=== PATIENT | female | born 1950 | race Caucasian/White ===

== ENCOUNTER 2017-05-04 15:18 | Emergency (ER) | payer OTHER, MEDICARE ==
[~2017-05-04] VITALS: Ht 167.6 cm; Wt 77.1 kg
--- NOTE | 2017-05-04 15:47 | ED AMS/SEIZURE/WEAK/DIZZY ---
History of Present Illness General Chief Complaint: Headache Stated Complaint: DIZZINESS Source: patient, friend Exam Limitations: no limitations Vital Signs & Intake/Output Vital Signs & Intake/Output Vital Signs Date Time Temp Pulse Resp B/P B/P Pulse O2 O2 Flow FiO2 Mean Ox Delivery Rate 05/04 1955 98.4 80 18 163/85 100 Room Air 05/04 1754 98.5 98 19 166/102 99 Room Air 05/04 1526 97.7 97 19 140/77 99 Room Air 05/04 1524 Room Air ED Intake and Output 05/05 0000 05/04 1200 Intake Total 0 Output Total Balance 0 Intake, Oral 0 Patient 170 lb Weight Allergies Coded Allergies: MDX - Amoxicillin (AMOXICILLIN) (08/28/10) MDX - Bee Venom (BEE VENOM) (08/28/10) MDX - Epinephrine (Epinephrine) (MAKES HER VERY SHAKEY 08/28/10) Triage Note: PT BIBA FROM [facility] AFTER HAVING SUDDENT ONSET OF HEADACHE, DIZZINESS, NAUSEA AND COLD SWEATS. PT FEBRILE BY EMS, 100.6F. GLUCOSE 160. PT DENIES CHEST PAIN OR SOB. Triage Nurses Notes Reviewed? yes Onset: Gradual Duration: minute(s): Timing: single episode today Injury Environment: [facility] Severity: moderate HPI: 67yo female presents to ED complaining of headache, dizziness, presyncope, cold sweats beginning prior to arrival. Patient states that she was at the [facility] and she got up to walk down the hallway when she began experiencing the symptoms. She states dizziness was so severe she had to sit down and felt nauseous. Patient states that currently while laying in stretcher she feels better however if she sits up her symptoms return. Patient states past few days she has been feeling generalized weakness. Otherwise she feels well, she denies fevers, chills, abdominal pain, chest pain, nausea, vomiting, diarrhea, urinary symptoms. Past History Travel History Traveled to [place] past 21 day No Medical History Any Pertinent Medical History? see below for history Neurological: FIBROMYALGIA EENT: NONE Cardiovascular: NONE Respiratory: NONE Gastrointestinal: NONE Hepatic: NONE Renal: NONE Musculoskeletal: NONE Psychiatric: NONE Endocrine: NONE Blood Disorders: NONE Cancer(s): NONE Surgical History Surgical History: non-contributory Psychosocial History What is your primary language [place] Tobacco Use: Never used ETOH Use: denies use Family History Hx Contributory? No Review of Systems Review of Systems Constitutional: Reports: see HPI. EENTM: Reports: no symptoms. Respiratory: Reports: no symptoms. Cardiovascular: Reports: see HPI. GI: Reports: see HPI. Genitourinary: Reports: no symptoms. Musculoskeletal: Reports: no symptoms. Skin: Reports: no symptoms. Neurological/Psychological: Reports: see HPI. Hematologic/Endocrine: Reports: no symptoms. Immunologic/Allergic: Reports: no symptoms. All Other Systems: Reviewed and Negative Physical Exam Physical Exam General Appearance: well developed/nourished, no apparent distress, alert, awake Head: atraumatic, normal appearance Eyes: Bilateral: normal appearance, PERRL, EOMI. Ears, Nose, Throat: normal pharynx, normal ENT inspection, hearing grossly normal Neck: normal inspection, supple, full range of motion Respiratory: normal breath sounds, no respiratory distress, lungs clear Cardiovascular: regular rate/rhythm Peripheral Pulses: 2+ radial (R), 2+ radial (L) Gastrointestinal: normal bowel sounds, soft, non-tender, no organomegaly Back: normal inspection, normal range of motion Extremities: normal range of motion Neurologic/Psych: awake, alert, oriented x 3, managing supervisor II-XII nml as tested Skin: intact, normal color, warm/dry Core Measures ACS in differential dx? Yes CVA/TIA Diagnosis No Sepsis Present: No Sepsis Focused Exam Completed? No Progress Differential Diagnosis: arrythmia, alcohol intoxication, anemia, benign positional vertigo, CVA/stroke, dehydration, drug intoxication, electrolyte imbalance, hypoglycemia, intracranial Hem., intracranial mass/tumor, labrynthitis, Meniere's disease, pneumonia, postural hypotension, presyncope, subarachnoid Hem. Plan of Care: Orders Procedure Date/time Status MISTAKE 05/04 1619 Active TROPONIN LEVEL 05/04 1619 Complete COMPREHENSIVE METABOLIC PANEL 05/04 1619 Complete CBC WITHOUT DIFFERENTIAL 05/04 161 Complete EKG 05/04 161 Active RAPID VIRAL INFLUENZA A 05/04 1546 Complete Laboratory Tests 05/04/17 1657: Anion Gap 14, Estimated GFR > 60, BUN/Creatinine Ratio 24.3, Glucose 98, Calcium 9.7, Total Bilirubin 0.2, AST 19, ALT 32, Alkaline Phosphatase 92, Troponin I < 0.01, Total Protein 7.0, Albumin 4.2, Globulin 2.8, Albumin/Globulin Ratio 1.5, CBC w Diff NO MAN DIFF REQ, RBC 4.82, MCV 86.6, MCH 28.8, MCHC 33.3, RDW 12.9, MPV 8.4, Gran % 71.0, Lymphocytes % 21.6, Monocytes % 5.5, Eosinophils % 1.4, Basophils % 0.5, Absolute Granulocytes 6.8 H, Absolute Lymphocytes 2.1, Absolute Monocytes 0.5, Absolute Eosinophils 0.1, Absolute Basophils 0 Microbiology 05/04 1603 NASOPHARYN: Influenza Virus A & B Rapid Smear - COMP Rapid flu swab is negative. Patient's EKG is in sinus rhythm, troponin negative. Remainder of labs are within normal limits. Patient's orthostatic vital signs show orthostatic changes, patient medicated with IV fluids. During standing the patient became symptomatic with headache and dizziness. Patient has been afebrile here in the emergency department. Following liter of fluids repeat orthostatic vital signs are negative, patient ambulated by me here in the emergency department and had steady gait without symptoms. Patient feels ready to go home at this time. Patient educated on increasing fluids and resting. She will follow up with her primary care doctor. The patient is in no acute distress, symptoms have resolved, she is nontoxic appearing. The patient agrees with the plan of care. She was given strict return precautions. The patient was discussed with Dr. Vaughan who agrees with this plan. Initial ED EKG: sinus rhythm @82bpm, nonspecific ST changes Prior EKG: changed (08/28/10 subtle t wave changes) Departure Departure Disposition: HOME OR SELF CARE Condition: Stable Clinical Impression Primary Impression: Orthostatic hypotension Secondary Impressions: Dizziness Headache Qualifiers: Headache type: unspecified Headache chronicity pattern: acute headache Intractability: not intractable Qualified Code: R51 - Headache Pre-syncope Referrals: Sarah DOVER,Yessi Hamilton (PCP/Family) Additional Instructions: Continue to drink plenty of fluids. Follow-up with her primary care doctor this week and inform them of your visit to the emergency department. If you experience worsening symptoms such as feeling is that you're going to pass out, fainting, chest pain, trouble breathing, worsening dizziness patient return to the emergency department. Please note that there might be incidental findings in your evaluation that are unrelated to the current emergency department visit. Please notify your primary care doctor about this emergency department visit in order to obtain and review all of the testing performed so that these incidental findings can be monitored as needed. If you had an x-ray performed, please understand that some fractures may not be seen on the initial set of x-rays. If your symptoms persist you might need a repeat set of x-rays to check for such a fracture. If you had a laceration evaluated, please understand that foreign bodies such as glass or wood may not be visible to the naked eye or on plain x-rays. If the wound becomes red, swollen, increasingly more painful or if there is any drainage from the wound, please have it reevaluated by a physician for the possibility of a retained foreign body. If you're unable to follow up as outlined in the discharge instructions please return to the emergency department. Thank you for choosing the [facility] Emergency Department for your care. It was a pleasure to serve you today. Departure Forms: Customer Survey General Discharge Information
[2017-05-04 17:08] LABS: ABSOLUTE BASOPHIL COUNT 0 /CUMM (0.0-0.2); ABSOLUTE EOSINOPHIL COUNT 0.1 /CUMM (0.0-0.7); ABSOLUTE GRANULOCYTE CT 6.8 /CUMM (1.4-6.5); ABSOLUTE LYMPH COUNT 2.1 /CUMM (1.2-3.4); ABSOLUTE MONOCYTE COUNT 0.5 /CUMM (0.10-0.60); BASOPHIL % 0.5 % (0.0-2.0); EOSINOPHIL % 1.4 % (0-5); HEMATOCRIT 41.8 % (37-47); MEAN CORPUSCULAR HGB 28.8 PG (27.0-31.0); MEAN CORPUSCULAR HGB CONC 33.3 G/DL (33.0-37.0); MEAN CORPUSCULAR VOLUME 86.6 FL (81.0-99.0); MEAN PLATELET VOLUME 8.4 FL (7.4-10.4); PLATELET COUNT 268 /CUMM (130-400); RBC DISTRIBUTION WIDTH 12.9 % (11.5-14.5); RED BLOOD CELL CT 4.82 /CUMM (4.20-5.40); WHITE BLOOD CELL COUNT 9.5 /CUMM (4.8-10.8)
[2017-05-04 19:56] VITALS: BP 163/85
== END 2017-05-04 19:59 ==
LOC: ERH 15:18
PROVIDERS: Physician Assistant
DX: I95.1 Orthostatic hypotension (principal); R42 Dizziness and giddiness; R51 Headache; R55 Syncope and collapse
CPT/HCPCS: 87804; 87804-59; 93005; 93010